=== PATIENT | female | born 1985 | race American Indian/Alaskan Native ===

== ENCOUNTER 2018-04-25 22:04 | Emergency (ER) | payer BC ==
[2018-04-25 22:17] VITALS: BMI 22.6
[2018-04-25 22:23] VITALS: RESP 18; TEMP 98.1
--- NOTE | 2018-04-25 22:37 | ED PDOC ---
Arrival/HPI - General Chief Complaint: Female Genitourinary Time Seen by Provider: 04/25/18 22:09 - History of Present Illness Narrative History of Present Illness (Text): 33 year old female with PMH of borderline anemia presents with one episode of bloody stool 1 hour ago. Patient reports that the blood was smeared on the stool and there was some anal itching as well. Patient denies nausea, vomiting, constipation, diarrhea, abdominal pain, chest pain, heart palpitations, shortness of breath, wheezing, cough, dysuria, hematuria, urinary frequency, or weakness. Patient reports having one normal bowel movement every other day. Patient does not have a PCP. (Sarina Cartagena) Past Medical History - Provider Review Nursing Documentation Reviewed: Yes - Hematological/Oncological Hx Anemia: Yes - Psychiatric Hx Substance Use: No - Surgical History Other/Comment: Lipoma removed from back. - Anesthesia Hx Anesthesia: Yes Hx Anesthesia Reactions: No Family/Social History - Physician Review Nursing Documentation Reviewed: Yes Family/Social History: Unknown Family HX Smoking Status: Unknown If Ever Smoked Hx Alcohol Use: No Hx Substance Use: No Allergies/Home Meds Allergies/Adverse Reactions: Allergies No Known Allergies Allergy (Verified 04/25/18 22:17) Review of Systems - Physician Review All systems were reviewed & negative as marked: Yes - Review of Systems Constitutional: Normal. absent: Fatigue, Weight Change, Fevers Eyes: Normal ENT: Normal Respiratory: Normal. absent: SOB, Cough, Sputum Cardiovascular: Normal. absent: Chest Pain, Palpitations, Edema Gastrointestinal: Other (episode of bloody stool) Genitourinary Female: Normal Musculoskeletal: Normal. absent: Back Pain, Neck Pain Skin: Normal. absent: Rash Neurological: Normal. absent: Headache, Dizziness Physical Exam Vital Signs Reviewed: Yes Temperature: Afebrile Blood Pressure: Normal Pulse: Regular Respiratory Rate: Normal Appearance: Positive for: Well-Appearing Pain Distress: None Mental Status: Positive for: Alert and Oriented X 3 - Systems Exam Head: Present: Atraumatic, Normocephalic Pupils: Present: PERRL Extroacular Muscles: Present: EOMI Mouth: Present: Moist Mucous Membranes Nose (External): Present: Atraumatic Respiratory/Chest: Present: Clear to Auscultation, Good Air Exchange. No: Respiratory Distress Cardiovascular: Present: Regular Rate and Rhythm, Normal S1, S2. No: Murmurs Abdomen: Present: Normal Bowel Sounds. No: Tenderness, Distention Rectal: Present: Hemorrhoids, Normal Rectal Tone Upper Extremity: Present: Normal Inspection, Normal ROM, NORMAL PULSES Lower Extremity: Present: Normal Inspection, NORMAL PULSES, Normal ROM Neurological: Present: GCS=15, CN II-XII Intact, Speech Normal, Motor Func Grossly Intact Skin: Present: Warm, Dry, Normal Color Psychiatric: Present: Alert, Oriented x 3, Normal Insight, Normal Concentration Vital Signs Temp Pulse Resp BP Pulse Ox 04/25/18 22:22 98.1 F 98 H 18 132/85 98 Medical Decision Making ED Course and Treatment: In agreement with resident note which contains more details about the patient. Patient was seen and evaluated with resident. Came up with plan and treatment together. Pt, whose past medical history includes anemia, presented for 1 episode of hematochezia. (Estevan Baugh) Impression: 33 year old female with PMH of borderline anemia presents with one episode of bloody stool 1 hour ago. Assessment: hemorrhoids Doubt diverticular bleed, AVM, colon cancer. Plan: Rectal exam performed: guaiac + CBC, CMP ordered to evaluate for anemia and electrolyte abnormalities. 04/25/18 23:30 Hgb is 12.1. Patient is cleared to be discharged and follow up with [facility] clinic and merchandising consultant. (Sarina Cartagena) - Lab Interpretations Lab Results: 04/25/18 22:40 04/25/18 22:40 Lab Results 04/25/18 22:40: Sodium 143, Potassium 3.6, Chloride 100, Carbon Dioxide 28, Anion Gap 19, BUN 13, Creatinine 0.6 L, Est GFR ( Amer) > 60, Est GFR ( Non-Af Amer) > 60, Random Glucose 94, Calcium 10.0, Magnesium 1.9, Total Bilirubin 0.4, AST 27, ALT 16, Alkaline Phosphatase 64, Total Protein 8.8 H, Albumin 5.3 H, Globulin 3.5, Albumin/Globulin Ratio 1.5 04/25/18 22:40: WBC 7.1, RBC 4.61, Hgb 12.1, Hct 36.4, MCV 79.0 L, MCH 26.2, MCHC 33.2, RDW 13.3, Plt Count 241, MPV 9.6, Gran % 67.5, Lymph % (Auto) 27.3, Dawson % (Auto) 4.7, Eos % (Auto) 0.4 L, Baso % (Auto) 0.1, Gran # 4.76, Lymph # ( Auto) 1.9, Dawson # (Auto) 0.3, Eos # (Auto) 0.0, Baso # (Auto) 0.01 - PA / MECHANICAL ENGINEERING DRAFTSPERSON / Resident Statement / has reviewed & agrees with the documentation as recorded. MD/DO has examined the patient and agrees with the treatment plan. Disposition/Present on Arrival - Present on Arrival Any Indicators Present on Arrival: No History of DVT/PE: No History of Uncontrolled Diabetes: No Urinary Catheter: No History of Decub. Ulcer: No History Surgical Site Infection Following: None - Disposition Have Diagnosis and Disposition been Completed?: Yes Disposition Time: 22:55 Patient Plan: Discharge - Disposition Diagnosis: Blood per rectum Disposition: HOME/ ROUTINE Patient Problems: Current Active Problems Problem Status Onset Blood per rectum Acute Condition: STABLE Additional Instructions: AMRIK AWAD, thank you for letting us take care of you today. Your provider was Estevan Baugh MD and Sarina Cartagena DO and you were treated for BLOOD IN STOOLS. The emergency medical care you received today was directed at your acute symptoms. Your blood work was checked for anemia and rectal exam was performed to evaluate for blood per rectum. Return to the Emergency Department if your symptoms worsen, do not improve, or if you have any other problems. Please contact [facility] for follow up appointment. Contact Dr. Coe for GI consultation. Bring any paperwork you were given at discharge with you along with any medications you are taking to your follow up visit. Our treatment cannot replace ongoing medical care by a primary care provider outside of the emergency department. Thank you for allowing the [facility] team to be part of your care today. Referrals: [facility] [Outside] - Follow up with primary Volodymyr Coe MD [Staff Provider] - Follow up with primary Forms: [employer] ([employer])
[2018-04-25 23:00] LABS: ALB/GLOB RATIO 1.5 (1.1-1.8); ALBUMIN 5.3 g/dL (3.0-4.8); ALT/SGPT 16 U/L (7-56); AST/SGOT 27 U/L (14-36); BLOOD UREA NITROGEN 13 mg/dL (7-21); GFR AFRICAN-AMERICAN > 60; GFR NON-AFRICAN AMERICAN > 60
[2018-04-25 23:25] LABS: BASO # 0.01 K/mm3 (0.0-2.0); BASO % 0.1 % (0.0-3.0); EOS % 0.4 % (1.5-5.0); GRAN # 4.76 (1.4-6.5); GRAN % 67.5 % (50.0-68.0); HEMOGLOBIN 12.1 g/dL (12.0-16.0); LYMPH # 1.9 (1.2-3.4); LYMPH % 27.3 % (22.0-35.0); MEAN CORPUSCULAR HEMOGLOBIN 26.2 pg (25.0-35.0); MEAN CORPUSCULAR HGB CONC 33.2 g/dl (31.0-37.0); MEAN PLATELET VOLUME 9.6 fl (7.0-11.0); MONO # 0.3 (0.1-0.6); MONO % 4.7 % (1.0-6.0); RBC 4.61 10^6/uL (3.5-6.1); RED CELL DISTRIBUTION WIDTH 13.3 % (11.5-14.5); WHITE BLOOD COUNT 7.1 10^3/ul (4.5-11.0)
[2018-04-25 23:51] VITALS: BP 125/82; PULSE 85; O2SAT 100
== END 2018-04-25 23:42 | disposition home or self-care (01) ==
LOC: ED 22:04
DX: K62.5 Hemorrhage of anus and rectum (principal)